=== PATIENT | male | born 1985 | race Caucasian/White ===

== ENCOUNTER 2018-12-19 11:23 | Emergency (ER) | payer MEDICAID ==
[~2018-12-19] VITALS: Ht 177.8 cm; Wt 92.0 kg
[2018-12-19] MEDS ORDERED: TETANUS, DIPHTHERIA, PERTUSSIS VAC/PF 0.5ML (>7YR OLD) IM ONE (13:00)
[2018-12-19] MEDS ORDERED: LIDOCAINE HCL 1% 20ML VIAL (Pyxis) INJ INFIL ONE (13:00)
[2018-12-19 14:31] VITALS: BP 125/85
== END 2018-12-19 14:34 | disposition home or self-care (01) ==
LOC: ER 11:23
DX: S61.211A Laceration without foreign body of left index finger without damage to nail, initial encounter (principal); W26.8XXA Contact with other sharp object(s), not elsewhere classified, initial encounter; Y93.89 Activity, other specified; Y92.89 Other specified places as the place of occurrence of the external cause; Y99.8 Other external cause status
CPT/HCPCS: 12001; 90471; 90715; 99283; J3490; Z7610

== ENCOUNTER 2018-12-26 09:52 | Emergency (ER) | payer MEDICAID ==
[~2018-12-26] VITALS: Ht 162.6 cm; Wt 92.0 kg
[2018-12-26 10:55] VITALS: BP 122/71
== END 2018-12-26 11:04 | disposition home or self-care (01) ==
LOC: ER 10:48
DX: S61.211D Laceration without foreign body of left index finger without damage to nail, subsequent encounter (principal); X58.XXXD Exposure to other specified factors, subsequent encounter
CPT/HCPCS: 99281; Z7610

== ENCOUNTER 2018-12-30 10:15 | Emergency (ER) | payer MEDICAID ==
[~2018-12-30] VITALS: Ht 167.6 cm; Wt 95.0 kg
[2018-12-30 11:11] VITALS: BP 135/77
== END 2018-12-30 11:22 | disposition home or self-care (01) ==
LOC: ER 10:29
DX: Z48.02 Encounter for removal of sutures (principal)
CPT/HCPCS: 99282